=== PATIENT | female | born 1975 | race African-American/Black ===

== ENCOUNTER 2018-11-25 16:19 | Inpatient (IN) | payer MEDICARE, OTHER ==
[~2018-11-25] VITALS: Ht 170.2 cm; Wt 64.0 kg
[2018-11-25] MEDS ORDERED: ACETAMINOPHEN 650MG SUPP PR STA (16:34)
[2018-11-25] MEDS ORDERED: VANCOMYCIN 1 G PREMIX 200 ML IV ONE (16:45)
[2018-11-25] MEDS ORDERED: SODIUM CHLORIDE 0.9% 1000ML BAG (SEPSIS BOLUS) IV ONE (16:45)
[2018-11-25] MEDS ORDERED: PIPERACILLIN/TAZ 3.375G PREMIX 50 ML IV ONE (16:45)
[2018-11-25 17:28] LABS: BASOPHILS % 0.3 % (0.0-2.0); HEMATOCRIT. 43.8 % (36.0-48.0); HEMOGLOBIN. 13.6 g/dL (12.0-16.0); LYMPHOCYTES % 8.3 % (20.0-50.0); MEAN CORPUSCULAR HEMOGLOBIN 29.6 pg (28.0-32.0); MEAN CORPUSCULAR VOLUME 95.4 fL (81.0-99.0); MEAN PLATELET VOLUME 12.2 fl (7.4-10.4); MONOCYTES % 9.5 % (2.0-8.0); NEUTROPHILS % 81.9 % (40.0-76.0); PLATELET 300 x1000/uL (130-400); RED CELL DISTRIBUTION WIDTH 13.6 % (11.6-14.6)
[2018-11-25 17:34] LABS: CHLORIDE 113 mEq/L (98-107)
[2018-11-25 17:35] LABS: INR 1.3
[2018-11-25 17:38] LABS: ETHANOL BLOOD < 10 mg/dL; HCG SCREEN NEGATIVE
[2018-11-25 18:00] LABS: CLARITY URINE CLOUDY (CLEAR); COLOR URINE DARK YELLOW (YELLOW); KETONES URINE TRACE (NEGATIVE); LEUKOCYTE ESTERASE URINE TRACE (NEGATIVE); NITRITE URINE NEGATIVE (NEGATIVE); OCCULT BLOOD URINE NEGATIVE (NEGATIVE); PROTEIN URINE 2+ (NEGATIVE); SPECIFIC GRAVITY URINE 1.028 (1.005-1.030)
[2018-11-25 18:15] LABS: *AMPHETAMINES SCREEN URINE NEGATIVE (NEGATIVE); *BARBITURATES SCREEN URINE NEGATIVE (NEGATIVE); *BENZODIAZEPINES SCREEN URINE NEGATIVE (NEGATIVE); *COCAINE SCREEN URINE NEGATIVE (NEGATIVE); METHADONE URINE SCREEN NEGATIVE (NEGATIVE)
[2018-11-25 18:16] LABS: CANNABINOID URINE SCREEN NEGATIVE (NEGATIVE); PHENCYCLIDINE URINE SCREEN NEGATIVE (NEGATIVE)
[2018-11-25 18:22] LABS: OPIATES URINE SCREEN PRESUMTIVE POSITIVE (NEGATIVE)
[2018-11-25] MEDS ORDERED: SODIUM CHLORIDE 0.9% 1,000 ML IV ONE (18:30)
[2018-11-25 18:56] LABS: BG BASE EXCESS -2.3 mmol/L (-2.0-2.0); BG CARBOXYHEMOGLOBIN 0.3 % (0.5-1.5); BG DEOXYHEMOGLOBIN 0.9 % (0.0-5.0); BG FRACTION INSPIRED OXYGEN 40; BG HCO3 ACT 22.6 mmol/L (22.0-26.0); BG METHEMOGLOBIN 0.2 % (0.0-1.5); BG OXYGEN SATURATION 99.1 % (92.0-98.5); BG OXYHEMOGLOBIN 98.6 % (94.0-97.0); BG PCO2 39.4 mmHg (35.0-45.0); BG PH 7.377 (7.350-7.450); BG PO2 212.6 mmHg (75.0-100.0); BG SAMPLE SITE RIGHT RADIAL; BG TOTAL HEMOGLOBIN 10.3 g/dL (12.0-18.0); BG VENT MODE NASAL CANNULA
[2018-11-25] MEDS ORDERED: PIPERACILLIN/TAZ 3.375G PREMIX 50 ML IV SCH (21:45)
[2018-11-25] MEDS ORDERED: IPRATROPIUM/ALBUTEROL 0.5-3(2.5)MG/3ML NEB HHN PRN (21:45)
[2018-11-25] MEDS ORDERED: ONDANSETRON HCL 4MG/2ML INJ IV PRN (21:45)
[2018-11-25] MEDS ORDERED: ACETAMINOPHEN 650MG SUPP PR NR (22:30)
[2018-11-25] MEDS ORDERED: INSULIN GLARGINE UD 100 UNITS/ML SYR SUBCUT NR (22:30)
[2018-11-25] MEDS ORDERED: INSULIN LISPRO 100 UNITS/ML SUBCUT NR (22:30)
[2018-11-26] VITALS: BP 103/76
[2018-11-26] MEDS ORDERED: DEXTROSE 50% WATER 50ML SYRINGE IV PRN (01:45)
[2018-11-26] MEDS: SODIUM CHLORIDE 0.45% 1,000 ML IV SCH ×3 (02:40→12:11)
[2018-11-26] MEDS: PIPERACILLIN/TAZOBACTAM 2.25 G in DEXTROSE 5% WATER 50 ML IV SCH ×4 (02:41→18:06)
[2018-11-26] MEDS: ENOXAPARIN 40MG/0.4ML SYR SUBCUT SCH ×2 (02:41→21:00)
[2018-11-26] MEDS ORDERED: BLOOD SUGAR DIAGNOSTIC STRIP TEST SCH ×2 (06:00)
[2018-11-26] MEDS ORDERED: INSULIN LISPRO 100 UNITS/ML SUBCUT SCH ×2 (06:00→08:00)
[2018-11-26 08:00] VITALS: BP 117/85
[2018-11-26] MEDS: MORPHINE SULFATE 2 MG/ML CPJ (NOT FOR IM USE) IV PRN ×2 (08:09→17:08)
[2018-11-26] MEDS ORDERED: VANCOMYCIN 1 G PREMIX 200 ML IV SCH ×2 (09:00→11:00)
[2018-11-26 09:31] LABS: BASOPHILS % 0.3 % (0.0-2.0); HEMATOCRIT. 31.7 % (36.0-48.0); HEMOGLOBIN. 10.3 g/dL (12.0-16.0); LYMPHOCYTES % 9.4 % (20.0-50.0); MEAN CORPUSCULAR HEMOGLOBIN 30.3 pg (28.0-32.0); MEAN CORPUSCULAR VOLUME 93.5 fL (81.0-99.0); MEAN PLATELET VOLUME 11.7 fl (7.4-10.4); MONOCYTES % 6.9 % (2.0-8.0); NEUTROPHILS % 83.4 % (40.0-76.0); PLATELET 169 x1000/uL (130-400); RED BLOOD CELL COUNT 3.39 mill/uL (4.2-5.4); RED CELL DISTRIBUTION WIDTH 12.9 % (11.6-14.6)
[2018-11-26] MEDS ORDERED: ACETAMINOPHEN 650MG SUPP PR NR (09:45)
[2018-11-26] MEDS ORDERED: DIATR MEGLU/DIATRIZOATE SOLN 30ML ONE (09:52)
[2018-11-26 10:00] VITALS: BP 111/82
[2018-11-26 10:07] LABS: CHLORIDE 124 mEq/L (98-107)
[2018-11-26 10:28] LABS: T4 FREE 1.04 ng/dL (0.76-1.46)
[2018-11-26 10:29] LABS: LDL CHOLESTEROL 58 mg/dL (5-100)
[2018-11-26 10:30] LABS: CREATINE KINASE 604 IU/L (26-192)
[2018-11-26 10:33] LABS: HDL CHOLESTEROL 20 mg/dL (40-59)
[2018-11-26] MEDS: BLOOD SUGAR DIAGNOSTIC STRIP TEST SCH ×3 (11:59→20:00)
[2018-11-26 12:00] VITALS: BP 123/73
[2018-11-26] MEDS: INSULIN LISPRO 100 UNITS/ML SUBCUT SCH ×3 (12:11→20:00)
[2018-11-26 14:00] VITALS: BP 110/80
[2018-11-26 17:55] VITALS: BP 123/84
[2018-11-26 21:21] LABS: CHLORIDE 123 mEq/L (98-107)
[2018-11-26] MEDS ORDERED: VANCOMYCIN 1250MG in DEXTROSE 5% WATER 250ML IV SCH (23:00)
[2018-11-27] VITALS (18 sets, daily range): BP systolic 116–150; BP diastolic 80–96
[2018-11-27] MEDS: BLOOD SUGAR DIAGNOSTIC STRIP TEST SCH ×6 (00:24→20:00)
[2018-11-27] MEDS: MORPHINE SULFATE 2 MG/ML CPJ (NOT FOR IM USE) IV PRN (00:26)
[2018-11-27] MEDS: PIPERACILLIN/TAZOBACTAM 3.375 G in DEXT 5% WATER 100 ML IV SCH ×4 (01:00→18:15)
[2018-11-27] MEDS: SODIUM CHLORIDE 0.45% 1,000 ML IV SCH ×2 (03:54→12:53)
[2018-11-27] MEDS: INSULIN LISPRO 100 UNITS/ML SUBCUT SCH ×6 (04:45→21:24)
[2018-11-27 06:05] LABS: BASOPHILS % 0.4 % (0.0-2.0); HEMATOCRIT. 29.5 % (36.0-48.0); HEMOGLOBIN. 9.4 g/dL (12.0-16.0); LYMPHOCYTES % 10.3 % (20.0-50.0); MEAN CORPUSCULAR HEMOGLOBIN 29.7 pg (28.0-32.0); MEAN CORPUSCULAR VOLUME 93.5 fL (81.0-99.0); MEAN PLATELET VOLUME 12.5 fl (7.4-10.4); MONOCYTES % 4.6 % (2.0-8.0); NEUTROPHILS % 84.7 % (40.0-76.0); PLATELET 137 x1000/uL (130-400); RED BLOOD CELL COUNT 3.16 mill/uL (4.2-5.4)
[2018-11-27 06:24] LABS: CHLORIDE 120 mEq/L (98-107)
[2018-11-27] MEDS: VANCOMYCIN 1 G PREMIX 200 ML IV SCH ×2 (11:55→21:22)
[2018-11-27] MEDS: AMLODIPINE 2.5MG TABLET GT SCH (12:53)
[2018-11-27] MEDS ORDERED: KCL 20MEQ/100ML PREMIX 100 ML IV SCH (13:00)
[2018-11-27] MEDS: DEXT 5% WATER + KCL 20MEQ/L 1,000 ML IV SCH (18:15)
[2018-11-27] MEDS: ENOXAPARIN 40MG/0.4ML SYR SUBCUT SCH (21:00)
[2018-11-28] VITALS (9 sets, daily range): BP systolic 106–129; BP diastolic 70–84
[2018-11-28] MEDS: BLOOD SUGAR DIAGNOSTIC STRIP TEST SCH ×6 (00:16→20:00)
[2018-11-28] MEDS: INSULIN LISPRO 100 UNITS/ML SUBCUT SCH ×6 (00:16→21:18)
[2018-11-28] MEDS: PIPERACILLIN/TAZOBACTAM 3.375 G in DEXT 5% WATER 100 ML IV SCH ×4 (00:21→18:41)
[2018-11-28] MEDS: DEXT 5% WATER + KCL 20MEQ/L 1,000 ML IV SCH (05:43)
[2018-11-28 06:05] LABS: HEMATOCRIT. 32.6 % (36.0-48.0); HEMOGLOBIN. 10.5 g/dL (12.0-16.0); MEAN CORPUSCULAR HEMOGLOBIN 29.6 pg (28.0-32.0); MEAN CORPUSCULAR VOLUME 92.4 fL (81.0-99.0); MEAN PLATELET VOLUME 13.5 fl (7.4-10.4); PLATELET 120 x1000/uL (130-400); RED BLOOD CELL COUNT 3.53 mill/uL (4.2-5.4); RED CELL DISTRIBUTION WIDTH 12.9 % (11.6-14.6)
[2018-11-28 07:14] LABS: CHLORIDE 112 mEq/L (98-107)
[2018-11-28] MEDS ORDERED: BUPIVACAINE HCL/PF 0.25% (2.5MG/ML) 10ML ONE (07:28)
[2018-11-28] MEDS ORDERED: VANCOMYCIN HCL 500 MG/VIAL ONE (07:29)
[2018-11-28] MEDS ORDERED: MIDAZOLAM HCL 2 MG/2 ML VIAL ONE (08:06)
[2018-11-28] MEDS ORDERED: PROPOFOL 200MG/20ML VIAL IV ONE (08:06)
[2018-11-28] MEDS ORDERED: FENTANYL CITRATE/PF 50MCG/ML 2ML VIAL ONE (08:06)
[2018-11-28] MEDS: AMLODIPINE 2.5MG TABLET GT SCH (08:09)
[2018-11-28] MEDS: VANCOMYCIN 1 G PREMIX 200 ML IV SCH ×3 (08:09→21:18)
[2018-11-28] MEDS ORDERED: LIDOCAINE HCL/PF 1% 10 MG/ML 5ML VIAL ONE (08:23)
[2018-11-28] MEDS ORDERED: ONDANSETRON HCL 4MG/2ML INJ ONE (08:24)
[2018-11-28] MEDS ORDERED: KCL 20MEQ/100ML PREMIX 100 ML IV NR (10:00)
[2018-11-28] MEDS ORDERED: MORPHINE SULFATE 2 MG/ML CPJ (NOT FOR IM USE) IV PRN (10:15)
[2018-11-28] MEDS: MORPHINE SULFATE 2 MG/ML CPJ (NOT FOR IM USE) IV PRN ×2 (11:57→18:42)
[2018-11-28] MEDS: ACETAMINOPHEN 325MG TABLET PO PRN (12:05)
[2018-11-28 13:11] LABS: PLATELET ESTIMATE SLIGHTLY DECREASED
[2018-11-28] MEDS: ENOXAPARIN 40MG/0.4ML SYR SUBCUT SCH (21:00)
[2018-11-29] VITALS (12 sets, daily range): BP systolic 97–141; BP diastolic 50–91
[2018-11-29] MEDS: DEXT 5% WATER + KCL 20MEQ/L 1,000 ML IV SCH ×3 (00:53→19:56)
[2018-11-29] MEDS: INSULIN LISPRO 100 UNITS/ML SUBCUT SCH ×7 (00:54→23:32)
[2018-11-29] MEDS: BLOOD SUGAR DIAGNOSTIC STRIP TEST SCH ×7 (00:54→23:33)
[2018-11-29] MEDS: PIPERACILLIN/TAZOBACTAM 3.375 G in DEXT 5% WATER 100 ML IV SCH ×4 (00:54→19:55)
[2018-11-29] MEDS: MORPHINE SULFATE 2 MG/ML CPJ (NOT FOR IM USE) IV PRN ×3 (00:56→15:58)
[2018-11-29] MEDS: ACETAMINOPHEN 325MG TABLET PO PRN ×3 (04:53→15:58)
[2018-11-29 06:18] LABS: CHLORIDE 104 mEq/L (98-107)
[2018-11-29 06:55] LABS: HEMATOCRIT. 28.8 % (36.0-48.0); HEMOGLOBIN. 9.3 g/dL (12.0-16.0); MEAN CORPUSCULAR HEMOGLOBIN 29.8 pg (28.0-32.0); MEAN PLATELET VOLUME 13.2 fl (7.4-10.4); PLATELET 96 x1000/uL (130-400); RED BLOOD CELL COUNT 3.13 mill/uL (4.2-5.4); RED CELL DISTRIBUTION WIDTH 12.6 % (11.6-14.6)
[2018-11-29] MEDS: AMLODIPINE 2.5MG TABLET GT SCH (09:03)
[2018-11-29] MEDS ORDERED: IOHEXOL-350 100 ML BOTTLE ONE (10:15)
[2018-11-29] MEDS: VANCOMYCIN 1 G PREMIX 200 ML IV SCH ×2 (10:50→22:05)
[2018-11-29 12:42] LABS: PLATELET ESTIMATE DECREASED
[2018-11-29] MEDS: PANTOPRAZOLE SODIUM 40 MG/VIAL IV SCH (15:57)
[2018-11-30] VITALS (12 sets, daily range): BP systolic 113–164; BP diastolic 54–95
[2018-11-30] MEDS: MORPHINE SULFATE 2 MG/ML CPJ (NOT FOR IM USE) IV PRN ×4 (00:06→15:44)
[2018-11-30] MEDS: PIPERACILLIN/TAZOBACTAM 3.375 G in DEXT 5% WATER 100 ML IV SCH ×3 (02:52→12:54)
[2018-11-30] MEDS: BLOOD SUGAR DIAGNOSTIC STRIP TEST SCH ×5 (03:31→20:22)
[2018-11-30] MEDS: INSULIN LISPRO 100 UNITS/ML SUBCUT SCH ×5 (03:31→20:14)
[2018-11-30 05:38] LABS: HEMATOCRIT. 26.1 % (36.0-48.0); HEMOGLOBIN. 8.6 g/dL (12.0-16.0); MEAN CORPUSCULAR HEMOGLOBIN 30.2 pg (28.0-32.0); MEAN CORPUSCULAR VOLUME 91.9 fL (81.0-99.0); MEAN PLATELET VOLUME 12.9 fl (7.4-10.4); PLATELET 110 x1000/uL (130-400); RED BLOOD CELL COUNT 2.84 mill/uL (4.2-5.4)
[2018-11-30 05:52] LABS: CHLORIDE 105 mEq/L (98-107)
[2018-11-30 06:25] LABS: CREATINE KINASE 1780 IU/L (26-192)
[2018-11-30] MEDS: DEXT 5% WATER + KCL 20MEQ/L 1,000 ML IV SCH (06:36)
[2018-11-30] MEDS: VANCOMYCIN 1 G PREMIX 200 ML IV SCH ×2 (08:29→23:08)
[2018-11-30] MEDS: PANTOPRAZOLE SODIUM 40 MG/VIAL IV SCH (08:29)
[2018-11-30] MEDS: AMLODIPINE 2.5MG TABLET GT SCH (08:30)
[2018-11-30] MEDS: ACETAMINOPHEN 325MG TABLET PO PRN (09:26)
[2018-11-30 11:06] LABS: PLATELET ESTIMATE SLIGHTLY DECREASED
[2018-11-30] MEDS ORDERED: METOPROLOL TARTRATE 25MG TABLET PO NR (11:15)
[2018-11-30] MEDS: METOPROLOL TARTRATE 25MG TABLET PO SCH ×2 (12:12→22:01)
[2018-11-30] MEDS ORDERED: CLONIDINE 0.1MG TABLET PO PRN (14:30)
[2018-11-30] MEDS ORDERED: DOCUSATE SODIUM 100MG CAPSULE PO PRN (14:30)
[2018-11-30] MEDS ORDERED: DIPHENHYDRAMINE 50MG/ML VIAL IV PRN (14:30)
[2018-11-30] MEDS ORDERED: LORAZEPAM 2MG/ML CPJ IV PRN (14:30)
[2018-11-30] MEDS ORDERED: INSULIN GLARGINE UD 100 UNITS/ML SYR SUBCUT NR (15:30)
[2018-11-30 17:25] LABS: HEPATITIS B SURFACE ANTIGEN NEGATIVE
[2018-11-30 17:55] LABS: HEPATITIS A AB IGM NEGATIVE (NEGATIVE)
[2018-12-01] VITALS (15 sets, daily range): BP systolic 123–157; BP diastolic 78–110
[2018-12-01] MEDS: INSULIN LISPRO 100 UNITS/ML SUBCUT SCH ×6 (00:37→20:19)
[2018-12-01] MEDS: BLOOD SUGAR DIAGNOSTIC STRIP TEST SCH ×6 (00:37→20:11)
[2018-12-01 06:51] LABS: HEMATOCRIT. 27.9 % (36.0-48.0); HEMOGLOBIN. 9.1 g/dL (12.0-16.0); MEAN CORPUSCULAR HEMOGLOBIN 29.4 pg (28.0-32.0); MEAN CORPUSCULAR VOLUME 90.5 fL (81.0-99.0); PLATELET 173 x1000/uL (130-400); RED BLOOD CELL COUNT 3.08 mill/uL (4.2-5.4)
[2018-12-01 07:08] LABS: CHLORIDE 105 mEq/L (98-107)
[2018-12-01 07:26] LABS: TOTAL IRON BINDING CAPACITY 144 ug/dL (250-450)
[2018-12-01] MEDS: LANSOPRAZOLE 30MG DR CAPSULE GT SCH (07:30)
[2018-12-01] MEDS: VANCOMYCIN 1 G PREMIX 200 ML IV SCH ×2 (09:00→20:22)
[2018-12-01] MEDS: AMLODIPINE 2.5MG TABLET GT SCH (09:00)
[2018-12-01] MEDS: METOPROLOL TARTRATE 25MG TABLET PO SCH (09:00)
[2018-12-01 09:47] LABS: PLATELET ESTIMATE NORMAL
[2018-12-01] MEDS ORDERED: METOPROLOL TARTRATE 5MG/5ML VIAL IV ONE (11:00)
[2018-12-01] MEDS ORDERED: INSULIN GLARGINE UD 100 UNITS/ML SYR SUBCUT NR (12:00)
[2018-12-01] MEDS ORDERED: POTASSIUM CHLORIDE 20MEQ/PACKET PO NR (13:30)
[2018-12-01] MEDS ORDERED: MORPHINE SULFATE 2 MG/ML CPJ (NOT FOR IM USE) IV NR (14:15)
[2018-12-01] MEDS ORDERED: MORPHINE SULFATE 2 MG/ML CPJ (NOT FOR IM USE) IV PRN (14:15)
[2018-12-01] MEDS: METRONIDAZOLE 500MG TABLET PO SCH ×2 (14:50→21:45)
[2018-12-01 15:24] LABS: BG CARBOXYHEMOGLOBIN 0.3 % (0.5-1.5); BG DEOXYHEMOGLOBIN 3.1 % (0.0-5.0); BG FRACTION INSPIRED OXYGEN 21; BG HCO3 ACT 28.3 mmol/L (22.0-26.0); BG METHEMOGLOBIN 0.2 % (0.0-1.5); BG OXYGEN SATURATION 96.9 % (92.0-98.5); BG OXYHEMOGLOBIN 96.4 % (94.0-97.0); BG PCO2 36.4 mmHg (35.0-45.0); BG PH 7.508 (7.350-7.450); BG PO2 87.1 mmHg (75.0-100.0); BG SAMPLE SITE RIGHT RADIAL; BG TOTAL HEMOGLOBIN 9.9 g/dL (12.0-18.0); BG VENT MODE ROOM AIR
[2018-12-01] MEDS: CEFEPIME 1,000 MG in DEXTROSE 5% WATER 50 ML IV SCH (17:00)
[2018-12-01] MEDS: FERROUS SULFATE 325MG TABLET PO SCH (18:13)
[2018-12-01] MEDS: MORPHINE SULFATE 2 MG/ML CPJ (NOT FOR IM USE) IV PRN (19:47)
[2018-12-01] MEDS: METOPROLOL TARTRATE 50MG TABLET PO SCH (20:22)
[2018-12-01] MEDS: INSULIN GLARGINE UD 100 UNITS/ML SYR SUBCUT SCH (21:47)
[2018-12-02] VITALS (15 sets, daily range): BP systolic 104–138; BP diastolic 54–94
[2018-12-02] MEDS: BLOOD SUGAR DIAGNOSTIC STRIP TEST SCH ×6 (00:17→23:40)
[2018-12-02] MEDS: INSULIN LISPRO 100 UNITS/ML SUBCUT SCH ×6 (00:20→23:50)
[2018-12-02] MEDS: MORPHINE SULFATE 2 MG/ML CPJ (NOT FOR IM USE) IV PRN ×3 (02:27→21:43)
[2018-12-02] MEDS: CEFEPIME 1,000 MG in DEXTROSE 5% WATER 50 ML IV SCH ×2 (03:42→15:50)
[2018-12-02 06:03] LABS: CHLORIDE 103 mEq/L (98-107)
[2018-12-02 06:10] LABS: BASOPHILS % 0.3 % (0.0-2.0); EOSINOPHILS % 0.4 % (0.0-5.0); HEMATOCRIT. 29.7 % (36.0-48.0); HEMOGLOBIN. 9.6 g/dL (12.0-16.0); LYMPHOCYTES % 8.1 % (20.0-50.0); MEAN CORPUSCULAR HEMOGLOBIN 29.6 pg (28.0-32.0); MEAN CORPUSCULAR VOLUME 91.5 fL (81.0-99.0); MEAN PLATELET VOLUME 11.6 fl (7.4-10.4); NEUTROPHILS % 82.2 % (40.0-76.0); PLATELET 237 x1000/uL (130-400); RED BLOOD CELL COUNT 3.24 mill/uL (4.2-5.4); RED CELL DISTRIBUTION WIDTH 13.2 % (11.6-14.6)
[2018-12-02] MEDS: LANSOPRAZOLE 30MG DR CAPSULE GT SCH (06:31)
[2018-12-02] MEDS: METRONIDAZOLE 500MG TABLET PO SCH ×3 (06:31→23:39)
[2018-12-02] MEDS: FERROUS SULFATE 325MG TABLET PO SCH ×3 (08:16→17:06)
[2018-12-02] MEDS: AMLODIPINE 2.5MG TABLET GT SCH (08:16)
[2018-12-02] MEDS: VANCOMYCIN 1 G PREMIX 200 ML IV SCH ×2 (08:17→21:36)
[2018-12-02] MEDS: METOPROLOL TARTRATE 50MG TABLET PO SCH ×2 (08:17→21:37)
[2018-12-02] MEDS: INSULIN GLARGINE UD 100 UNITS/ML SYR SUBCUT SCH ×2 (11:11→21:59)
[2018-12-03] VITALS (13 sets, daily range): BP systolic 107–151; BP diastolic 62–98
[2018-12-03] MEDS: CEFEPIME 1,000 MG in DEXTROSE 5% WATER 50 ML IV SCH ×2 (03:52→16:28)
[2018-12-03] MEDS: BLOOD SUGAR DIAGNOSTIC STRIP TEST SCH ×3 (06:17→17:38)
[2018-12-03] MEDS: METRONIDAZOLE 500MG TABLET PO SCH ×2 (06:18→13:04)
[2018-12-03] MEDS: INSULIN LISPRO 100 UNITS/ML SUBCUT SCH ×3 (06:19→17:57)
[2018-12-03 06:40] LABS: BASOPHILS % 0.5 % (0.0-2.0); EOSINOPHILS % 1.2 % (0.0-5.0); HEMATOCRIT. 27.4 % (36.0-48.0); HEMOGLOBIN. 8.9 g/dL (12.0-16.0); MEAN CORPUSCULAR HEMOGLOBIN 29.9 pg (28.0-32.0); MEAN CORPUSCULAR VOLUME 91.9 fL (81.0-99.0); MEAN PLATELET VOLUME 10.8 fl (7.4-10.4); MONOCYTES % 8.4 % (2.0-8.0); NEUTROPHILS % 77.9 % (40.0-76.0); PLATELET 259 x1000/uL (130-400); RED BLOOD CELL COUNT 2.98 mill/uL (4.2-5.4); RED CELL DISTRIBUTION WIDTH 13.3 % (11.6-14.6)
[2018-12-03 06:49] LABS: CHLORIDE 106 mEq/L (98-107)
[2018-12-03] MEDS: FERROUS SULFATE 325MG TABLET PO SCH ×3 (08:31→17:57)
[2018-12-03] MEDS: FAMOTIDINE 20MG TABLET PO SCH ×2 (08:31→20:57)
[2018-12-03] MEDS: METOPROLOL TARTRATE 50MG TABLET PO SCH ×2 (08:31→20:57)
[2018-12-03] MEDS: AMLODIPINE 2.5MG TABLET GT SCH (08:31)
[2018-12-03] MEDS: VANCOMYCIN 1 G PREMIX 200 ML IV SCH ×2 (10:36→20:57)
[2018-12-03] MEDS: INSULIN GLARGINE UD 100 UNITS/ML SYR SUBCUT SCH ×2 (10:36→22:16)
[2018-12-03] MEDS: MORPHINE SULFATE 2 MG/ML CPJ (NOT FOR IM USE) IV PRN ×2 (13:10→19:14)
[2018-12-03] MEDS: MEROPENEM 1000MG in NORMAL SALINE 100ML IV SCH (18:14)
[2018-12-04] VITALS (9 sets, daily range): BP systolic 117–148; BP diastolic 72–103
[2018-12-04] MEDS: BLOOD SUGAR DIAGNOSTIC STRIP TEST SCH ×3 (00:04→11:14)
[2018-12-04] MEDS: INSULIN LISPRO 100 UNITS/ML SUBCUT SCH ×3 (00:05→12:47)
[2018-12-04] MEDS: MEROPENEM 1000MG in NORMAL SALINE 100ML IV SCH ×2 (02:06→10:50)
[2018-12-04 08:29] LABS: BASOPHILS % 0.6 % (0.0-2.0); EOSINOPHILS % 0.5 % (0.0-5.0); HEMOGLOBIN. 8.8 g/dL (12.0-16.0); LYMPHOCYTES % 8.2 % (20.0-50.0); MEAN CORPUSCULAR HEMOGLOBIN 29.6 pg (28.0-32.0); MEAN CORPUSCULAR VOLUME 90.5 fL (81.0-99.0); MEAN PLATELET VOLUME 10.1 fl (7.4-10.4); MONOCYTES % 7.4 % (2.0-8.0); NEUTROPHILS % 83.3 % (40.0-76.0); PLATELET 312 x1000/uL (130-400); RED BLOOD CELL COUNT 2.99 mill/uL (4.2-5.4); RED CELL DISTRIBUTION WIDTH 13.3 % (11.6-14.6)
[2018-12-04 08:45] LABS: CHLORIDE 104 mEq/L (98-107)
[2018-12-04] MEDS: FERROUS SULFATE 325MG TABLET PO SCH ×2 (09:10→12:46)
[2018-12-04] MEDS: FAMOTIDINE 20MG TABLET PO SCH (09:10)
[2018-12-04] MEDS: VANCOMYCIN 1 G PREMIX 200 ML IV SCH (09:21)
[2018-12-04] MEDS: AMLODIPINE 2.5MG TABLET GT SCH (09:21)
[2018-12-04] MEDS: METOPROLOL TARTRATE 50MG TABLET PO SCH (09:22)
[2018-12-04] MEDS: INSULIN GLARGINE UD 100 UNITS/ML SYR SUBCUT SCH (10:51)
== END 2018-12-04 16:10 | disposition home health service (06) | DRG 710 ==
LOC: ER 16:19 → 5EST 19:09 → EDBEDREQTM 19:11 → EDBEDREQ 19:11 → ENRESERV 21:26 → 5EST 11-26 11:30
PROVIDERS: ADMIT Internal Medicine; ATTEND Internal Medicine
PROC: 0Y6D0Z3 Detachment at Left Upper Leg, Low, Open Approach (ICD-10-PCS; principal; 2018-11-28)
PROC: 02HV33Z Insertion of Infusion Device into Superior Vena Cava, Percutaneous Approach (ICD-10-PCS; 2018-12-02)
PROC: B548ZZA Ultrasonography of Superior Vena Cava, Guidance (ICD-10-PCS; 2018-12-02)
DX: A41.02 Sepsis due to Methicillin resistant Staphylococcus aureus (principal); E43 Unspecified severe protein-calorie malnutrition; N17.9 Acute kidney failure, unspecified; D69.6 Thrombocytopenia, unspecified; E11.52 Type 2 diabetes mellitus with diabetic peripheral angiopathy with gangrene; E11.65 Type 2 diabetes mellitus with hyperglycemia; E87.0 Hyperosmolality and hypernatremia; E83.42 Hypomagnesemia; I38 Endocarditis, valve unspecified; R74.0 Nonspecific elevation of levels of transaminase and lactic acid dehydrogenase [LDH]; I11.9 Hypertensive heart disease without heart failure; G82.20 Paraplegia, unspecified; D64.9 Anemia, unspecified; E87.6 Hypokalemia; Z93.1 Gastrostomy status; Z79.4 Long term (current) use of insulin; Z86.73 Personal history of transient ischemic attack (TIA), and cerebral infarction without residual deficits; Z68.22 Body mass index [BMI] 22.0-22.9, adult; Z88.0 Allergy status to penicillin; Z89.432 Acquired absence of left foot; Z89.431 Acquired absence of right foot
CPT/HCPCS: 36415; 36600; 71045; 72191; 73552; 73706; 73721; 74018; 76937; 80048; 80061; 80076; 80202; 80305; 80320; 81003; 82270; 82375; 82550; 82805; 82962; 83036; 83540; 83550; 83605; 83735; 84439; 84443; 84484; 84703; 85651; 86140; 86705; 86709; 86803; 86850; 86900; 86920; 87015; 87045; 87077; 87186; 87340; 87427; 87449; 88307; 88311; 89055; 93005; 93306; 93922; 93970; 93971; 96365; 99291; A6261; C1725; C9113; J0692; J1650; J1815; J2185; J2250; J2270; J2405; J2543; J2704; J3010; J3370; J3480; J3490; J7030; J7040; J7060; Q9963; Q9967; G0480

== ENCOUNTER 2018-12-31 09:34 | Inpatient (IN) | payer MEDICARE ==
[~2018-12-31] VITALS: Ht 160 cm; Wt 59.9 kg
[2018-12-31] MEDS: DEXT 5%/0.45% NACL 1000ML 1,000 ML IV SCH (11:45)
[2018-12-31] MEDS ORDERED: ACETAMINOPHEN 650MG/20.3ML UDC GT PRN (11:45)
[2018-12-31] MEDS ORDERED: HYDROCODONE/ACETAMINOPHEN 5/325MG TABLET PO PRN (11:45)
[2018-12-31] MEDS ORDERED: MEROPENEM 1,000 MG in SODIUM CHLORIDE 0.9% 100 ML IV SCH (11:45)
[2018-12-31] MEDS ORDERED: CLONIDINE 0.1MG TABLET PO PRN (11:45)
[2018-12-31] MEDS ORDERED: LORAZEPAM 2MG/ML CPJ IV PRN (11:45)
[2018-12-31] MEDS ORDERED: ACETAMINOPHEN 650MG SUPP PR PRN (11:45)
[2018-12-31] MEDS ORDERED: LORAZEPAM 0.5MG TABLET PO PRN (11:45)
[2018-12-31] MEDS ORDERED: GUAIFENESIN 200MG/10ML SUGAR FREE UDC PO PRN (11:45)
[2018-12-31] MEDS ORDERED: ONDANSETRON HCL 4MG/2ML INJ IV PRN (11:45)
[2018-12-31] MEDS ORDERED: NA PHOS,M-B/NA PHOS,DI-BA ENEMA 118ML PR PRN (11:45)
[2018-12-31] MEDS ORDERED: MAGNESIUM/ALUMINUM HYDROXIDE/SIMETHICONE 30ML UDC PO PRN (11:45)
[2018-12-31] MEDS ORDERED: IPRATROPIUM/ALBUTEROL 0.5-3(2.5)MG/3ML NEB NEB PRN (11:45)
[2018-12-31] MEDS ORDERED: DIPHENHYDRAMINE 50MG/ML VIAL IV PRN (11:45)
[2018-12-31] MEDS: MEROPENEM 1,000 MG in SODIUM CHLORIDE 0.9% 100 ML IV SCH ×2 (12:15→23:42)
[2018-12-31 12:18] LABS: CLARITY URINE CLEAR (CLEAR); COLOR URINE YELLOW (YELLOW); KETONES URINE NEGATIVE (NEGATIVE); LEUKOCYTE ESTERASE URINE TRACE (NEGATIVE); NITRITE URINE NEGATIVE (NEGATIVE); OCCULT BLOOD URINE NEGATIVE (NEGATIVE); PROTEIN URINE NEGATIVE (NEGATIVE); SPECIFIC GRAVITY URINE 1.015 (1.005-1.030)
[2018-12-31 13:45] LABS: INR 1.1; PROTHROMBIN TIME 10.8 sec (9.6-11.0)
[2018-12-31] MEDS ORDERED: VANCOMYCIN 1 G PREMIX 200 ML IV SCH (13:45)
[2018-12-31 13:47] LABS: BASOPHILS % 0.7 % (0.0-2.0); EOSINOPHILS % 1.2 % (0.0-5.0); HEMOGLOBIN. 9.7 g/dL (12.0-16.0); LYMPHOCYTES % 19.4 % (20.0-50.0); MEAN CORPUSCULAR HEMOGLOBIN 29.6 pg (28.0-32.0); MEAN CORPUSCULAR VOLUME 91.6 fL (81.0-99.0); MEAN PLATELET VOLUME 8.9 fl (7.4-10.4); MONOCYTES % 6.3 % (2.0-8.0); NEUTROPHILS % 72.4 % (40.0-76.0); PLATELET 295 x1000/uL (130-400); RED BLOOD CELL COUNT 3.28 mill/uL (4.2-5.4); RED CELL DISTRIBUTION WIDTH 14.9 % (11.6-14.6)
[2018-12-31 13:48] LABS: CHLORIDE 100 mEq/L (98-107)
[2018-12-31 14:00] LABS: HCG SCREEN NEGATIVE
[2018-12-31] MEDS ORDERED: LEVOFLOXACIN 750MG PREMIX 150 ML IV ONE (15:00)
[2018-12-31] MEDS ORDERED: VANCOMYCIN 1 G PREMIX 200 ML IV ONE (15:00)
[2018-12-31 20:00] VITALS: BP 131/79
[2018-12-31 21:16] VITALS: BP 131/79
[2018-12-31] MEDS ORDERED: VANCOMYCIN 750 MG PREMIX 150 ML IV SCH (22:00)
[2019-01-01] VITALS: BP 139/87
[2019-01-01] MEDS ORDERED: VANCOMYCIN 750 MG PREMIX 150 ML IV SCH (02:00)
[2019-01-01 04:00] VITALS: BP 152/89
[2019-01-01] MEDS: MEROPENEM 1,000 MG in SODIUM CHLORIDE 0.9% 100 ML IV SCH ×3 (05:51→21:00)
[2019-01-01 08:00] VITALS: BP 153/99
[2019-01-01] MEDS: FAMOTIDINE 20MG/2ML VIAL IV SCH (10:30)
[2019-01-01] MEDS: DEXT 5%/0.45% NACL 1000ML 1,000 ML IV SCH (10:31)
[2019-01-01 12:00] VITALS: BP 156/67
[2019-01-01] MEDS: VANCOMYCIN 1 G PREMIX 200 ML IV SCH (12:18)
[2019-01-01] MEDS ORDERED: BISACODYL 10MG SUPP PR PRN (13:00)
[2019-01-01] MEDS ORDERED: IPRATROPIUM/ALBUTEROL 0.5-3(2.5)MG/3ML NEB HHN PRN (13:00)
[2019-01-01] MEDS ORDERED: CLONIDINE 0.1MG TABLET PO PRN (13:00)
[2019-01-01] MEDS ORDERED: DEXTROSE 50% WATER 50ML SYRINGE IV PRN (13:30)
[2019-01-01 15:59] LABS: BASOPHILS % 0.6 % (0.0-2.0); EOSINOPHILS % 1.3 % (0.0-5.0); HEMATOCRIT. 30.2 % (36.0-48.0); HEMOGLOBIN. 9.7 g/dL (12.0-16.0); LYMPHOCYTES % 19.6 % (20.0-50.0); MEAN CORPUSCULAR HEMOGLOBIN 29.8 pg (28.0-32.0); MEAN CORPUSCULAR VOLUME 92.5 fL (81.0-99.0); MEAN PLATELET VOLUME 8.9 fl (7.4-10.4); MONOCYTES % 8.8 % (2.0-8.0); NEUTROPHILS % 69.7 % (40.0-76.0); PLATELET 255 x1000/uL (130-400); RED BLOOD CELL COUNT 3.26 mill/uL (4.2-5.4); RED CELL DISTRIBUTION WIDTH 14.6 % (11.6-14.6)
[2019-01-01 16:00] VITALS: BP 131/89
[2019-01-01 16:00] LABS: CHLORIDE 99 mEq/L (98-107)
[2019-01-01] MEDS ORDERED: LORAZEPAM 2MG/ML CPJ IV PRN (17:00)
[2019-01-01] MEDS ORDERED: ONDANSETRON HCL 4MG/2ML INJ IV PRN (17:00)
[2019-01-01] MEDS ORDERED: LACTULOSE 20G/30ML UDC PO PRN (17:00)
[2019-01-01 17:46] LABS: BG CARBOXYHEMOGLOBIN 0.2 % (0.5-1.5); BG DEOXYHEMOGLOBIN 3.1 % (0.0-5.0); BG FRACTION INSPIRED OXYGEN 21; BG HCO3 ACT 25.4 mmol/L (22.0-26.0); BG METHEMOGLOBIN 0.2 % (0.0-1.5); BG OXYGEN SATURATION 96.9 % (92.0-98.5); BG OXYHEMOGLOBIN 96.5 % (94.0-97.0); BG PCO2 34.8 mmHg (35.0-45.0); BG PH 7.481 (7.350-7.450); BG PO2 97.3 mmHg (75.0-100.0); BG SAMPLE SITE RIGHT RADIAL; BG VENT MODE ROOM AIR
[2019-01-01] MEDS: INSULIN LISPRO 100 UNITS/ML SUBCUT SCH ×2 (17:50→21:00)
[2019-01-01] MEDS: BLOOD SUGAR DIAGNOSTIC STRIP TEST SCH ×2 (17:59→21:10)
[2019-01-01] MEDS: HYDROCODONE/ACETAMINOPHEN 5/325MG TABLET PO PRN (17:59)
[2019-01-01 20:00] VITALS: BP 161/105
[2019-01-02] VITALS (7 sets, daily range): BP systolic 101–159; BP diastolic 67–93
[2019-01-02] MEDS: HYDROCODONE/ACETAMINOPHEN 5/325MG TABLET PO PRN (00:17)
[2019-01-02] MEDS: VANCOMYCIN 1 G PREMIX 200 ML IV SCH (00:17)
[2019-01-02] MEDS: MEROPENEM 1,000 MG in SODIUM CHLORIDE 0.9% 100 ML IV SCH ×3 (06:14→21:30)
[2019-01-02] MEDS ORDERED: VANCOMYCIN HCL 1 GM/VIAL ONE (07:16)
[2019-01-02] MEDS ORDERED: BUPIVACAINE HCL/PF 0.25% (2.5MG/ML) 10ML ONE (07:16)
[2019-01-02] MEDS ORDERED: BACITRACIN 50,000 UNITS/VIAL ONE (07:17)
[2019-01-02] MEDS: BLOOD SUGAR DIAGNOSTIC STRIP TEST SCH ×4 (07:17→20:47)
[2019-01-02] MEDS ORDERED: MIDAZOLAM HCL 2 MG/2 ML VIAL ONE (07:24)
[2019-01-02] MEDS ORDERED: FENTANYL CITRATE/PF 50MCG/ML 2ML VIAL ONE (07:24)
[2019-01-02] MEDS ORDERED: LIDOCAINE HCL/PF 1% 10 MG/ML 5ML VIAL ONE (07:26)
[2019-01-02] MEDS ORDERED: PROPOFOL 200MG/20ML VIAL IV ONE (07:26)
[2019-01-02] MEDS ORDERED: EPHEDRINE SULFATE 50MG/ML VIAL ONE (07:28)
[2019-01-02] MEDS ORDERED: PHENYLEPHRINE HCL 10 MG/ML 1ML (IV VIAL) IV ONE (07:28)
[2019-01-02] MEDS ORDERED: SODIUM CHLORIDE 0.9% 10ML VIAL ONE ×2 (07:28→07:29)
[2019-01-02] MEDS ORDERED: ROCURONIUM BROMIDE 10MG/ML VIAL 5ML IV ONE (07:32)
[2019-01-02] MEDS: INSULIN LISPRO 100 UNITS/ML SUBCUT SCH ×5 (07:50→21:31)
[2019-01-02 07:55] LABS: CHLORIDE 100 mEq/L (98-107)
[2019-01-02] MEDS: FAMOTIDINE 20MG/2ML VIAL IV SCH (09:00)
[2019-01-02] MEDS ORDERED: DEXAMETHASONE 4MG/ML 1ML VIAL ONE (09:32)
[2019-01-02] MEDS ORDERED: GLYCOPYRROLATE 0.2 MG/ML 2ML VIAL ONE (09:37)
[2019-01-02] MEDS ORDERED: HYDRALAZINE 20MG/ML VIAL ONE (09:43)
[2019-01-02] MEDS ORDERED: ESMOLOL HCL 10MG/ML 10ML VIAL IV ONE (10:28)
[2019-01-02] MEDS: HYDROMORPHONE HCL/PF 2MG/ML CPJ IV PRN ×2 (11:56→18:21)
[2019-01-02] MEDS: DEXT 5%/0.45% NACL 1000ML 1,000 ML IV SCH (18:32)
[2019-01-03] VITALS: BP 138/79
[2019-01-03] MEDS: DEXT 5%/0.45% NACL 1000ML 1,000 ML IV SCH ×2 (01:32→17:59)
[2019-01-03] MEDS: HYDROMORPHONE HCL/PF 2MG/ML CPJ IV PRN ×4 (01:42→21:32)
[2019-01-03 04:00] VITALS: BP 139/76
[2019-01-03] MEDS: BLOOD SUGAR DIAGNOSTIC STRIP TEST SCH ×4 (05:53→21:32)
[2019-01-03] MEDS: MEROPENEM 1,000 MG in SODIUM CHLORIDE 0.9% 100 ML IV SCH ×3 (05:54→21:31)
[2019-01-03 08:00] VITALS: BP 141/75
[2019-01-03] MEDS: INSULIN LISPRO 100 UNITS/ML SUBCUT SCH ×4 (08:10→21:00)
[2019-01-03] MEDS: FAMOTIDINE 20MG/2ML VIAL IV SCH (08:23)
[2019-01-03 10:34] LABS: BASOPHILS % 0.6 % (0.0-2.0); EOSINOPHILS % 1.1 % (0.0-5.0); HEMATOCRIT. 27.4 % (36.0-48.0); LYMPHOCYTES % 15.2 % (20.0-50.0); MEAN CORPUSCULAR VOLUME 91.3 fL (81.0-99.0); MONOCYTES % 11.3 % (2.0-8.0); NEUTROPHILS % 71.8 % (40.0-76.0); RED CELL DISTRIBUTION WIDTH 15.5 % (11.6-14.6)
[2019-01-03] MEDS ORDERED: METOPROLOL TARTRATE 5MG/5ML VIAL IV NR (11:00)
[2019-01-03 11:03] LABS: CHLORIDE 104 mEq/L (98-107)
[2019-01-03 12:00] VITALS: BP 152/85
[2019-01-03 12:09] LABS: PLATELET 290 x1000/uL (130-400)
[2019-01-03] MEDS ORDERED: METOPROLOL TARTRATE 25MG TABLET PO NR (14:30)
[2019-01-03 16:00] VITALS: BP 145/88
[2019-01-03] MEDS: HYDROCODONE/ACETAMINOPHEN 5/325MG TABLET PO PRN (17:57)
[2019-01-03 20:00] VITALS: BP 137/77
[2019-01-03] MEDS: METOPROLOL TARTRATE 25MG TABLET PO SCH (21:31)
[2019-01-04] VITALS (7 sets, daily range): BP systolic 129–159; BP diastolic 78–107
[2019-01-04] MEDS: DEXT 5%/0.45% NACL 1000ML 1,000 ML IV SCH ×3 (00:07→22:17)
[2019-01-04] MEDS: MEROPENEM 1,000 MG in SODIUM CHLORIDE 0.9% 100 ML IV SCH ×3 (04:55→22:17)
[2019-01-04] MEDS: HYDROMORPHONE HCL/PF 2MG/ML CPJ IV PRN ×3 (04:56→17:50)
[2019-01-04] MEDS: BLOOD SUGAR DIAGNOSTIC STRIP TEST SCH ×4 (06:23→21:00)
[2019-01-04] MEDS: INSULIN LISPRO 100 UNITS/ML SUBCUT SCH ×4 (07:35→21:00)
[2019-01-04 07:48] LABS: HEMATOCRIT 27.4 % (36.0-48.0); HEMOGLOBIN 8.9 g/dL (12.0-16.0); MEAN CORPUSCULAR HEMOGLOBIN 29.8 pg (28.0-32.0); PLATELET 245 x1000/uL (130-400); RED BLOOD CELL COUNT 2.98 mill/uL (4.2-5.4)
[2019-01-04 07:55] LABS: CHLORIDE 104 mEq/L (98-107)
[2019-01-04] MEDS: FAMOTIDINE 20MG/2ML VIAL IV SCH (08:12)
[2019-01-04] MEDS: METOPROLOL TARTRATE 25MG TABLET PO SCH ×2 (08:13→22:17)
[2019-01-04] MEDS: VANCOMYCIN 750 MG PREMIX 150 ML IV SCH (11:54)
[2019-01-04] MEDS: POTASSIUM CHLORIDE INJ 40 MEQ in DEXT 5% WATER 250 ML IV SCH ×2 (13:18→14:54)
[2019-01-05] VITALS: BP 155/84
[2019-01-05] MEDS: HYDROMORPHONE HCL/PF 2MG/ML CPJ IV PRN ×2 (00:36→08:40)
[2019-01-05 04:00] VITALS: BP 155/76
[2019-01-05] MEDS: MEROPENEM 1,000 MG in SODIUM CHLORIDE 0.9% 100 ML IV SCH (05:32)
[2019-01-05] MEDS: DEXT 5%/0.45% NACL 1000ML 1,000 ML IV SCH (06:03)
[2019-01-05] MEDS: BLOOD SUGAR DIAGNOSTIC STRIP TEST SCH (06:29)
[2019-01-05 07:19] LABS: HEMATOCRIT 27.2 % (36.0-48.0); HEMOGLOBIN 8.9 g/dL (12.0-16.0); MEAN CORPUSCULAR HEMOGLOBIN 30.3 pg (28.0-32.0); MEAN CORPUSCULAR VOLUME 93.4 fL (81.0-99.0); PLATELET 247 x1000/uL (130-400); RED BLOOD CELL COUNT 2.92 mill/uL (4.2-5.4); RED CELL DISTRIBUTION WIDTH 15.4 % (11.6-14.6)
[2019-01-05] MEDS: INSULIN LISPRO 100 UNITS/ML SUBCUT SCH (07:34)
[2019-01-05 08:29] VITALS: BP 126/62
[2019-01-05] MEDS: FAMOTIDINE 20MG/2ML VIAL IV SCH (08:39)
[2019-01-05] MEDS: METOPROLOL TARTRATE 25MG TABLET PO SCH (08:39)
[2019-01-05] MEDS: VANCOMYCIN 750 MG PREMIX 150 ML IV SCH (10:13)
[2019-01-05 12:54] VITALS: BP 133/80
[2019-01-05 15:27] VITALS: BP 139/41
== END 2019-01-05 16:43 | disposition home health service (06) | DRG 309 ==
LOC: ER 09:34 → CANBEDREQ 14:46 → 6EST 14:59 → ENRESERV 17:33 → 7WST 01-02 17:55
PROVIDERS: ADMIT Internal Medicine; ATTEND Internal Medicine
PROC: 0QB90ZZ Excision of Left Femoral Shaft, Open Approach (ICD-10-PCS; principal; 2019-01-02)
DX: T87.44 Infection of amputation stump, left lower extremity (principal); L89.152 Pressure ulcer of sacral region, stage 2; E11.51 Type 2 diabetes mellitus with diabetic peripheral angiopathy without gangrene; D68.59 Other primary thrombophilia; E11.621 Type 2 diabetes mellitus with foot ulcer; E87.1 Hypo-osmolality and hyponatremia; G82.20 Paraplegia, unspecified; N39.0 Urinary tract infection, site not specified; R00.0 Tachycardia, unspecified; Y83.5 Amputation of limb(s) as the cause of abnormal reaction of the patient, or of later complication, without mention of misadventure at the time of the procedure; T87.81 Dehiscence of amputation stump; D64.9 Anemia, unspecified; L97.419 Non-pressure chronic ulcer of right heel and midfoot with unspecified severity; R13.10 Dysphagia, unspecified; Z74.01 Bed confinement status; Z86.73 Personal history of transient ischemic attack (TIA), and cerebral infarction without residual deficits; Z93.1 Gastrostomy status; Z89.612 Acquired absence of left leg above knee; Z98.84 Bariatric surgery status
CPT/HCPCS: 36415; 36600; 71045; 80048; 80202; 81003; 82375; 82805; 82962; 83605; 84703; 85027; 93005; 96365; 99285; J0360; J1100; J1170; J1815; J1956; J2185; J2250; J2370; J2704; J3010; J3370; J3480; J3490; J7050; J7060